=== PATIENT | female | born 1965 | race Two or more races ===

== ENCOUNTER 2022-08-07 10:09 | Emergency (ER) | payer MEDICAID ==
[~2022-08-07] VITALS: Ht 160 cm; Wt 59.1 kg
[2022-08-07 10:28] VITALS: BP 153/93
[2022-08-07] MEDS ORDERED: CEFTRIAXONE 500 MG VIAL IM ONE ×2 (11:30→11:45)
[2022-08-07] MEDS ORDERED: CefTRIAXone 500MG IM Kit w/LIDOcaine IM ONE ×2 (11:35→11:45)
== END 2022-08-07 13:05 | disposition home or self-care (01) ==
LOC: ER 10:09
DX: H60.90 Unspecified otitis externa, unspecified ear (principal); Z88.6 Allergy status to analgesic agent
CPT/HCPCS: 70450; 96372; 99284; J0696